=== PATIENT | female | born 1970 | race Caucasian/White ===

== ENCOUNTER 2017-05-23 13:04 | Outpatient (CLI) | payer OTHER | END 2017-05-23 13:05 | disposition home or self-care (01) | LOC: SC 13:04 | PROVIDERS: ATTEND Internal Medicine Pulmonary Disease | DX: G47.30 Sleep apnea, unspecified (principal); F51.05 Insomnia due to other mental disorder | CPT/HCPCS: 99203; 99212 ==

== ENCOUNTER 2017-07-25 20:37 | Outpatient (CLI) | payer OTHER | END 2017-07-25 20:38 | disposition home or self-care (01) | LOC: SC 20:37 | PROVIDERS: ATTEND Internal Medicine Pulmonary Disease | DX: G47.61 Periodic limb movement disorder (principal); G47.9 Sleep disorder, unspecified; R06.81 Apnea, not elsewhere classified | CPT/HCPCS: 95810 ==

== ENCOUNTER 2023-10-21 12:31 | Outpatient (CLI) | payer BC ==
--- NOTE | 2023-10-21 14:33 | Sleep Patient Instructions ---
Sleep Center Visit Summary - Patient Visit Information Reason for Visit: Initial consult for evaluation of sleep disordered breathing and other sleep issues. - Patient Instructions Additional Instructions: You will be completing a sleep study, a home sleep study (HST). You will follow-up in the sleep care office after the sleep study is completed to hear the results and talk about therapy, if needed. You will be sending the device back to us and we will be calling you to set up your next follow up appointment, but you may contact us with any questions. - Clinic Information Contact: [facility] [address] [place] [address] [email or web address] T: [phone]
--- NOTE | 2023-10-21 14:45 | SLEEP CARE CONSULTATION ---
Information from patient questionnaire entered by Maury Javed. I have reviewed and concur with the information entered by Maury Javed. This document represents the service I personally performed and the decisions made by me, Charisse Greene ARNP. History of Present Illness Service Date and Time: 10/21/2023 1231 Reason for Visit: New patient Chief Complaint: reports: Unrefreshed sleep, Excessive daytime sleepiness, Observed pauses in breathing, Fatigue, Frequent awakenings at night, Other Date of Onset: 10+YRS Usual bedtime: 0100 Time it takes to fall asleep: 30MINS Snores at night: Yes Observed to quit breathing while asleep: Yes Sleeps alone due to snoring: Yes Number of times waking at night: 5-7 Reasons for waking at night: reports: Choking, Gasping for air, Bathroom, Other (NIGHTMARES) Recalls having dreams: Yes Usually gets out of bed at: 0915 Feels refreshed in the morning: No Morning headache: No Sleepy or fatigued during the day: Yes Ever fallen asleep while driving: No Takes day naps: No Dreams during day naps: No Prior sleep studies: Yes Additional HPI information: I had the pleasure of seeing CELESTE PASTOR today regarding the possibility of her having a sleep disorder. Her current complaints are excessive daytime sleepiness, fatigue, frequent night awakenings, observed pauses in breathing, unrefreshed sleep and snoring. She was last seen in our office in 2018 but was not diagnosed with sleep apnea. She says she has severe anxiety disorder and was placed on Mirtazapine 2 years ago which caused her to gain around 80 pounds. She started developing times where she woke up gasping for air. Her will tell her she snores sometimes. She obtained a DreamStation CPAP and decided to start using it in May of last year. After 1 night of sleeping for 7 hours and waking up feeling refreshed she has been using the CPAP on a nightly basis. The patient tells me that she normally goes to bed around 1 AM, and it takes her approximately 30 minutes to calm herself down to fall asleep. She takes mirtazepine which helps her to calm down and fall asleep. She has been told that she snores loudly and irregularly at night. She has been observed to stop breathing in her sleep. Her bed partner can still sleep in the same bed. She can recall waking up on the average of 7-9 times during the night. Most of the time she wakes up because of adrenaline, gasping and nightmares. She has occasionally awakened having to gasp for air. There is a lot of tossing and turning in her sleep. Generally she can recall having dreams. She usually wakes up at 0900 and feels refreshed. She has been using a CPAP since June 02, 2022 and is waking up feeling refreshed now. She used to live in a "haze" and feel very tired and fatigued. She usually does not have a morning headache. During the day she complains of feeling sleepy and fatigued. She has never fallen asleep while driving nor has any accident due to sleepiness. She usually does not take naps during the day. She reports having impaired concentration during the day. There is no somniloquy (sleep talking) or somnambulism (sleep walking). - Parasomnia Symptoms Ever been unable to move upon waking from sleep: No Walks in sleep: No Talks in sleep: No Ever acted out dreams in sleep: No Ever felt weak in the knees when startled or emotional: No Bothered by creepy, crawly, restless sensations in legs: No Problems with memory or concentration: Yes CPAP Compliance Data - Data Reviewed with Patient Average duration of nightly device use: 7 hours 45 minutes Compliance rate %: 100 (90/90 days used) Current pressure setting (cmH2O): 6-20 (median 6.9, avg 8.6, mas 8.9) Average residual AHI: 2 Central apnea: 0.1 Obstructive apnea: 0.2 Hypopnea: 1.7 Average large leak: 6 secs Compliance data discussion: She has a Dreamstation that she purchased on her own. She is using a nasal pillows mask Dreamwear with gel pillows. She has been getting her supplies on he r own. Subjective Patient concerns: denies: aerophagia, mask discomfort, air blowing in eyes, mask leak noise, condensation in mask/hose, nasal congestion, dry mouth, nose, throat, epistaxis Observed to snore while using device: No Current pressure setting perceived as: comfortable On therapy, patient: reports: sleeping better, awakening more refreshed, being more awake and alert during the day, more rested overall. denies: drowsiness while driving Initial [place] Sleepiness Scale score: 0 (10/21/23) Past Medical History Past Medical History: reports: Claustrophobia, Anxiety, Asthma, Other (PRE DIABETIC, PANIC ATTACKS, OBESITY) Social History The patient's occupation is a RE. Patient is and lives in [place]. Have you smoked in the past 12 months: No Alcohol use: No Caffeine use: No Family History Family history of sleep disordered breathing: Yes Family Hx Sleep Apnea: Father: Snoring Allergies and Home Medications Known drug allergies: No Drug allergies reviewed: Yes Home medication list reviewed: Yes (as listed) Allergy and home medication list: Allergies No Known Drug Allergies Allergy (Verified 10/21/23 13:43) Home Medications Medication Instructions Recorded Confirmed Last Taken Type LORazepam [Ativan] See Rx Instructions .ROUTE .COMPLEX 10/21/23 10/21/23 Unknown History Mirtazapine See Rx Instructions .ROUTE .COMPLEX 10/21/23 10/21/23 Unknown History Topiramate [Topamax] See Rx Instructions .ROUTE .COMPLEX 10/21/23 10/21/23 Unknown History metFORMIN [Glucophage] See Rx Instructions .ROUTE .COMPLEX 10/21/23 10/21/23 Unknown History Review of Systems Weight gain over past 5 years: 60-70 Cardiovascular: reports: leg or foot swelling, other (SLEEPS WITH PEILLOW UNDER CHIN). denies: high blood pressure Respiratory: reports: shortness of breath Neurological: denies: headaches Psychiatric: reports: anxiety, claustrophobia Ear/Nose/Throat: reports: nasal congestion, sinus problems, nose bleeds, dry mouth/throat, hoarseness. denies: tonsillectomy Endocrine: reports: sluggishness, too hot or cold, excessive thirst, increased appetite Immunologic: reports: sneezing Physical Exam Vital signs obtained and entered by: MAURY Guzman MA Blood Pressure: 184/98 (RIGHT ARM; pt is very nervous) Cuff size: long Heart Rate: 128 O2 Saturation: 97 Height: 5 ft 5.25 in Weight: 273 lb 12.8 oz Body Mass Index: 45.2 BMI Classification: Morbidly Obese Neck circumference: 17.75 Nostrils: patent to airflow Mouth and throat: narrow oropharynx Soft palate: long Hard palate: normal Uvula: normal Uvula visualization: 50% Mallampati Class II Tongue: enlarged in size with teeth machuca on lateral edges Tonsils: 1+ Neck: normal w/o lymphadenopathy or thyromegaly Heart: regular rate and rhythm Lungs: clear bilaterally Impression and Plan 1. Suspected Obstructive Sleep Apnea-Hypopnea Syndrome, as suggested by a history of loud and irregular snoring, observed cessation of breath while asleep, gasping or choking in sleep, frequent awakening during the night, unrefreshed sleep, and excessive daytime sleepiness. Narrow oropharynx and obesity are common predisposing factors for obstructive sleep apnea-hypopnea syndrome. I recommend proceeding to polysomnography to confirm the diagnosis and to assess severity. If the patient has significant sleep disordered breathing, a manual CPAP titration study will also be performed to find the optimal treatment pressure. I informed the patient of what the sleep studies involve and after some discussion, obtained agreement to proceed. The pathophysiology of obstructive sleep apnea-hypopnea syndrome was discussed with the patient and health risks of cardiovascular and cerebrovascular disease if not treated. Risks of drowsy driving discussed in detail and patient advised to avoid long distance driving and to fur puller at the first sign of drowsiness. Patient agreed to plan. * Schedule polysomnography/HST * Avoid long distance driving or driving when feeling sleepy. * Avoid alcohol, sedative and muscle relaxant around bedtime. * Attempt to lose weight. * Review instructions provided by trained office staff on how to prepare for the sleep study. * Return for follow-up after sleep study completed. Counseling Topics: Weight loss health impact Plan: HST and follow up Visit Type: In Office Time Spent with Patient (minutes): 43 Provider Statement: I spent 100% of the Face to Face Visit with the patient with greater than 50% spent counseling the patient and coordination of care.
[2023-10-21 14:53] VITALS: BP 184/98; O2SAT 97
== END 2023-10-21 12:32 | disposition home or self-care (01) ==
LOC: SC 12:31
PROVIDERS: ATTEND Nurse Practitioner Family
DX: G47.8 Other sleep disorders (principal); G47.10 Hypersomnia, unspecified; R06.81 Apnea, not elsewhere classified; R53.83 Other fatigue; R06.83 Snoring; R41.89 Other symptoms and signs involving cognitive functions and awareness; E66.01 Morbid (severe) obesity due to excess calories; Z68.42 Body mass index [BMI] 45.0-49.9, adult; G47.33 Obstructive sleep apnea (adult) (pediatric); R09.02 Hypoxemia
CPT/HCPCS: 95806; 99212; 99213

== ENCOUNTER 2023-10-21 13:38 | Outpatient (CLI) | payer BC | END 2023-10-21 13:39 | disposition home or self-care (01) | LOC: SC 13:38 | PROVIDERS: ATTEND Nurse Practitioner Family | DX: G47.33 Obstructive sleep apnea (adult) (pediatric) (principal); R09.02 Hypoxemia; E66.01 Morbid (severe) obesity due to excess calories; Z68.42 Body mass index [BMI] 45.0-49.9, adult | CPT/HCPCS: 95806 ==

== ENCOUNTER 2023-11-04 11:28 | Outpatient (CLI) | payer BC ==
--- NOTE | 2023-11-04 09:38 | SLEEP CARE CONSULTATION ---
Information from patient questionnaire entered by Cailin Javed. I have reviewed and concur with the information entered by Cailin Javed. This document represents the service I personally performed and the decisions made by , Charisse Greene ARNP. History of Present Illness Service Date and Time: 11/04/2023 09 Initial [place] Sleepiness Scale score: 0 (10/21/23) Current [place] Sleepiness Scale score: 0 (11/04/23) Additional HPI information: CELESTE PASTOR returns via telephone visit for follow up and results of the recently performed home sleep study. The sleep study done on 10/21/23 showed mild obstructive sleep apnea with an average AHI of 5.4 and sanya oxygen saturation of 87%. I explained the pathophysiology behind obstructive sleep apnea. We then spent quite a bit of time discussing different treatment options. For mild obstructive sleep apnea, surgery and oral appliance are alternatives to nasal CPAP therapy but in moderate or severe cases, nasal CPAP is the most effective and reliable treatment. Because apnea is primarily in supine position, then positional management therapy could be effective. Methods discussed such as positioning with pillows, using a T-shirt with tennis balls in the back or commercial products that have a pillow format on back to prevent supine sleep. I reviewed the impact of weight changes on sleep apnea and strongly recommended losing weight. After some discussion, the patient opted to go with the nasal CPAP therapy. Nasal autoCPAP set at 8-12 cmH20 will be ordered with rationale explained. A manual titration study will be ordered if unable to find optimal pressure with office adjustments. I explained how CPAP machine works and what to expect when using the machine. Using CPAP every night in order to get used to it was emphasized. Patient advised to put CPAP mask on before getting into bed so as not to fall asleep without CPAP. If the mask given is uncomfortable or is difficult to keep on through the night even with adjustment, contact the CPAP supplier as many will replace with another mask style if notified before 30 days. If snoring or perceives is not getting enough air or too much air from the machine, notify this office. Patient does not drink alcohol. Patient was cautioned about risks of drowsy driving until sleepiness symptoms resolve. Patient denies drowsy driving. Sleep Study - Results Type of Sleep Study: Home sleep study (COMPLETED 10/21/23) Polysomnography/Home Sleep Study results: Physician Impression: The quality of the study is good. The length of the study is adequate (> 240 minutes). Please also see the tabulated and graphic data. 1. Obstructive Sleep Apnea-Hypopnea (ICD-10 G47.33), mild, with an AHI of 5.4/hr and sanya SaO2 of 87%. During the study, the patient had 9 apneas (9 obstructive, 0 central, 0 mixed) and 46 hypopneas. The longest episode lasted 110.0 seconds. The respiratory events occurred slightly more frequently during supine sleep (supine AHI was 6.6 and non-supine, 4.77). 2. Hypoxemia (ICD-10 R09.02), mild, with the lowest oxygen saturation of 87 % and 2.1 minutes with SaO2 under 90%. Baseline oxygen saturation was normal (Average oxygen saturation was 94%). Allergies and Home Medications Known drug allergies: No Drug allergies reviewed: Yes Home medication list reviewed: Yes (no changes) Allergy and home medication list: Allergies No Known Drug Allergies Allergy (Verified 11/04/23 09:01) Review of Systems Review of systems same as previous: Yes (NO CHANGE) Physical Exam Vital signs obtained and entered by: CAILIN Guzman MA Height: 5 ft 5.25 in (PER LAST VISIT) Weight: 273 lb (PER LAST VISIT) Body Mass Index: 45.1 BMI Classification: Morbidly Obese Impression and Plan 1. Obstructive Sleep Apnea-Hypopnea Syndrome, mild, with lowest oxygen satu ration of 87%. Obviously this is the cause of the patients symptoms of unrefreshed sleep, and excessive daytime sleepiness. Positive pressure therapy could benefit anxiety, pre-diabetes and asthma. As mentioned above, the patient will be started on nasal autoCPAP therapy with pressure set at 8-12 cmH2O. Compliance guidelines also reviewed. She has a Dreamstation that she purchased that is on the recall. She needs a new machine, so we will order one with initial set up with DME supplier. She will call to set up follow up once she has received her new device. 2. Hypoxemia, mild, with a sanya oxygen saturation of 87% and 2.1 minutes spent under 90%. The baseline oxygen saturation was normal with an average oxygen saturation of 94%. 3. Obesity, unspecified. Currently patients BMI is 45.1. Obesity increases the risk of apnea, CPAP pressure requirements and overall health risks especially cardiovascular and diabetes. Thus patient is advised to lose weight. * Nasal auto CPAP therapy, pressure at 8-12 cmH2O. * Attempt to lose weight. * Avoid alcohol consumption near bedtime. * Avoid supine sleep until using CPAP. * The patient is again cautioned about driving until sleepiness completely resolves. * Return one month after CPAP obtained. I will assess response to therapy and compliance at that time. Counseling Topics: Weight loss health impact Prescriptions: Auto CPAP Plan: start CPAP and compliance followup Visit Type: Telehealth Phone Video Type: [place] Patient Location: Home Location of Provider: Office Patient agrees and consents to this telehealth visit type: Yes Patient agrees to have their insurance billed: Yes Time Spent with Patient (minutes): 20 Provider Statement: I spent 100% of the Telehealth Phone Call with the patient with greater than 50% spent counseling the patient and coordination of care.
== END 2023-11-04 11:29 | disposition home or self-care (01) ==
LOC: SC 11:28
PROVIDERS: ATTEND Nurse Practitioner Family
DX: G47.33 Obstructive sleep apnea (adult) (pediatric) (principal); R09.02 Hypoxemia; E66.01 Morbid (severe) obesity due to excess calories; Z68.42 Body mass index [BMI] 45.0-49.9, adult
CPT/HCPCS: 99442